=== PATIENT | female | born 1950 | race Caucasian/White ===

== ENCOUNTER 2021-03-21 11:20 | Outpatient (CLI) | payer MEDICARE, SELFPAY ==
--- NOTE | 2021-03-21 11:34 | ECG_ITS ---
Measurements Intervals [place] Rate: 73 P: 13 SD: 148 QRS: 69 QRSD: 72 T: 50 QT: 350 QTc: 387 Interpretive Statements SINUS RHYTHM LOW QRS VOLTAGE IN PRECORDIAL LEADS BORDERLINE ECG Electronically Signed On 03-21-2021 12:29:52 ROOM MANAGER by Haim Nice D.O.
[2021-03-21 12:36] LABS: Anion Gap 5 mmol/L (8-16); Blood Urea Nitrogen 19 mg/dL (7-17); Calcium 9.6 mg/dL (8.4-10.2); Carbon Dioxide 28 mmol/L (22-30); Chloride 101 mmol/L (98-107); Estimated Glomerular Filt Rate 55; Glucose 106 mg/dL (65-110); Potassium 5.4 mmol/L (3.4-5.0); Sodium 134 mmol/L (137-145)
[2021-03-21 12:53] LABS: Basophils Percent Auto 0.4 % (0.2-1.2); Hemoglobin 11.9 g/dL (12.0-15.0); Immature Granulocyte Absolute 0.02 K/mm3 (0.00-0.031); Immature Granulocyte Percent A 0.3 % (0-0.5); Lymphocytes Percent Auto 25.5 % (18.3-44.2); Mean Corpuscular HGB Conc 31.3 g/dl (32-36); Mean Corpuscular Hemoglobin 29.4 pg (26-34); Mean Corpuscular Volume 93.8 fl (80-100); Mean Platelet Volume 11.1 fl (7.4-10.4); Monocytes Absolute Auto 0.6 K/mm3 (0.1-0.6); Monocytes Percent Auto 8.9 % (2.6-8.5); Neutrophils Absolute Auto 4.6 K/mm3 (1.3-6.7); Neutrophils Percent Auto 64.9 % (45.5-73.1); Platelet Count Result 225 k/mm3 (150-375); Red Blood Count 4.05 M/mm3 (4.2-5.4); Red Cell Distribution Width 13.6 % (11.5-14.5); White Blood Count 7.1 K/mm3 (4.5-10.0)
== END 2021-03-21 11:21 | disposition home or self-care (01) ==
LOC: ANHSURGERY 11:29
PROVIDERS: PCP Family Medicine; Visit Provider Surgery
DX: Z01.818 Encounter for other preprocedural examination (principal); K43.2 Incisional hernia without obstruction or gangrene
CPT/HCPCS: 36415; 80048; 85025; 93005

== ENCOUNTER 2021-03-29 16:25 | Observation (INO) | payer MEDICARE, SELFPAY ==
[2021-03-16 15:33] VITALS: BMI 32.1
--- NOTE | 2021-03-16 15:51 | PC.NURSE ---
Report to the Outpatient Waiting Room, entrance under the green pavilion located off [facility], at time _1100_ on date _03/28/21_. OR Time: _1 PM__. - You and your visitor will be asked a series of questions to screen for COVID 19 for your protection. - A mask is required within the hospital. - Only one visitor is allowed at this time. Patient visitors will be guided where to wait when not with patient. Preoperative COVID Testing Requirements: No COVID Test needed if: (proof is required; if not received patient will have Rapid Test prior to entry) - Patient has received COVID Vaccine at least 14 days prior to procedure date or - Patient has positive COVID test result within last 90 days of surgery date. COVID Test needed if above criteria is not met If not COVID vaccinated a COVID test must be conducted within 72 hours of surgery and patient is asked to isolate self from time of testing until procedure. You will go to the [facility] for your COVID testing. The [facility] site is located at the corner of [address] [facility]. You will only be called if COVID results are positive and your surgeon may reschedule your elective surgery date. Patients may have clear liquids (water, carbonated beverages, clear teas, apple juice) until 3 hours prior to surgery (1000 AM) with a maximum of 20 ounces. - No food from midnight until time of surgery - Infants may have breast milk until 4 hours before surgery, formula 6 hours prior to surgery. - Children will be allowed to drink immediately following surgery. If applicable, please bring a bottle or sippy cup to assist with drinking. Juice, water, soda, and popsicles are readily available. For infants on formula, please bring formula the day of surgery. Pacifiers are allowed. Take the following medications with a SIP of water the morning of surgery: NONE Medications to discontinue per physician __ALL VITAMINS & SUPPLEMENTS - 3 DAYS PRIOR TO SURGERY PER ANESTHESIA Date to take last dose 03/24/21 Please no make-up, nail faroese, hairspray, perfume, deodorant, or body powder the day of surgery. No jewelry (including any body piercings) or valuables the day of surgery, leave them at home. Please take a shower or bath the night before, or the morning of, surgery with an antibacterial soap. Wear comfortable, loose fitting clothing. Children are encouraged to wear pajamas. - Jewelry must be removed prior to entering the operating room. Rings and piercings that are not removed may be cut off. - The hospital will not accept responsibility for valuables. - Please leave all valuables, including medications, at home the day of surgery. If you are going home after surgery, a licensed straddle bug driver must drive you home. - NO public transportation without another adult. - We recommend that an adult stay with you for 24 hours following discharge. - We also recommend that you do not drive, make important decision, drink alcoholic beverages, or take any drugs that were not prescribed by your health care provider for at least 24 hours after your discharge time. For Pediatric surgeries, we recommend two adults accompany the child home (only one inside the building at this time). Follow any additional instructions given to you from your surgeon. DOROTHEA SHOWPILY AM OF SURGERY Telephone instructions given to PT and asked if any additional questions and then verbalized understanding. Patient advised to call surgeon office or pre surgery nurse liaison [phone] if any additional questions.
[2021-03-28] VITALS (12 sets, daily range): BP systolic 126–176; BP diastolic 62–87; PULSE 69–99; RESP 11–20; TEMP 36.2–37; O2SAT 92–100
[2021-03-28] MEDS: LACTATED RINGERS 1,000 ML 30 ML IV CONT ×2 (11:30→15:00)
[2021-03-28] MEDS: KETOROLAC 15 MG/ML VIAL (*BKC) IV PUSH (11:30)
[2021-03-28] MEDS: ACETAMINOPHEN 500 MG TABLET 1000 MG PO (11:30)
--- NOTE | 2021-03-28 12:45 | P.PNAN_ITS ---
Anes - Initial Pre Proc Eval Procedure: Operation Date: 03/28/21 13:00 Proposed Procedures p Laparoscopic Incisional Hernia Repair - Emmanuel Otto MD Date/Time: 03/28/21 12:45 Surgeon: Emmanuel Otto MD Pre Op Diagnosis: incisional hernia Patient Data Age: 71 Gender: F Height: 1.55 m Weight: 77.27 kg Allergies Allergy/AdvReac Type Severity Reaction Status Date / Time Sulfa (Sulfonamide Allergy Unknown Hives Verified 03/16/21 15:28 Antibiotics) SLUOROURAZI CREAM Allergy Severe N/V, Uncoded 03/16/21 15:28 DIAHRREA, BLOOD IN STOOL AND URINE Home Medications Medication Instructions Recorded Confirmed Type aspirin 81 mg tablet,delayed 81 mg PO QAM 02/21/21 03/16/21 History release lisinopril 20 mg tablet 20 mg PO QAM 02/21/21 03/16/21 History mesalamine 1.2 gram tablet,delayed 1.2 g PO BID tablet 02/21/21 03/16/21 History release omeprazole 20 mg capsule,delayed 20 mg PO QAM 02/21/21 03/16/21 History release cinnamon bark [Cinnamon] 1,000 mg PO DAILY 03/16/21 03/16/21 History turmeric 800 mg PO QAM 03/16/21 03/16/21 History Patient hx anesthesia problems: none Family hx anesthesia problems: none Results Review: All pre-operative results and documents have been reviewed as part of the pre-operative evaluation. [facility] Past Medical History Medical History (Updated 03/05/21 @ 14:29 by Margaret Crespo) Hypertension Skin cancer Surgical History Surgical History History of colon resection [address] Dr. Vahid MARTINEZ Family History Family History Father Acute myocardial infarction Other Diabetes mellitus Family history of cardiovascular disease Family history of malignant neoplasm Hypertension Social History Social History Smoking packs per day: 2.5 Smoking cigarettes per day: 50.0 Years smoked: 19 Smoking pack-years: 47.50 Smoking status: Former smoker Tobacco type: cigarettes Smoking end date: 04/14/94 Alcohol intake: current Drinks per week: 1 Substance use: never Substance use type: does not use Living arrangements: with family Spiritual care concerns: No Anes - Eval Final PreProcedure Day of Procedure 03/28/21 12:45 Patient weight: obese Heart: regular rate and rhythm Lungs: clear to auscultation Airway: Mallampati scale class II Neurological: alert and oriented Last oral intake: >/= 8 hours ASA classification: III Emergent: no Anesthetic plan: proceed Anesthesia type and monitoring: general ETT and standard monitoring Results Review: All pre-operative results and documents have been reviewed as part of the pre-operative evaluation. Informed Consent: The patient's anesthetic plan and its attendant risks and benefits were discussed with the patient/family/POA. Questions were solicited and answers provided to the satisfaction of the patient/family/POA.
--- NOTE | 2021-03-28 12:56 | WPDHPUPDATE1 ---
History and Physical Update Update Date/Time: 03/28/21 12:56 History and Physical has been reviewed, including an updated exam of the patient. There are NO changes in the patient's condition. Risks, benefits, and alternatives have been discussed and questions answered. Patient agrees to proceed with procedure.
[2021-03-28] MEDS: ceFAZolin 2 GM/D5W 50 ML 2 GM/50 ML BAG IVPB (13:08)
[2021-03-28] MEDS: BUPIVACAINE HCL 0.5% PF 30 ML VIAL INFILTRATE (13:43)
--- NOTE | 2021-03-28 14:57 | P.OP_ITS ---
Procedure Note - Detailed Date of Procedure 03/28/21 Pre-op Diagnosis incisional hernia Post-op Diagnosis same Procedure Performed Laparoscopic repair of incisional hernia with 15 x [address] mesh Surgeon Emmanuel Otto MD Instructor Kindergarten Nita Blackmon PHOTORESIST PRINTER Anesthesia general and local (0.5% Marcaine plain) Indications Patient is a 71-year-old woman who 3 years ago underwent a transverse colon resection with an upper midline incision. This was at a hand access port. She has developed an incisional hernia here and is now taken to surgery for repair Findings Multiple hernia defects were noted in the midline above the umbilicus. 15 x 20 cm mesh covered all defects with at least 5 cm overlap in every direction. Description of Procedure The patient was taken to surgery and induced into general anesthesia. The abdomen was prepped and draped. Initial trocar was in the left upper quadrant just beneath the costal margin. This was a 5 mm applied Medical optical trocar. It was placed under direct visualization. With this trocar in place, we placed a 5 mm port in the lateral mid abdomen and a 10 11 port in the left lower quadrant. We then visualized all the hernias. There was some omentum in the upper most hernia defect. This was taken down sharply. Minimal cautery was used. We then took the falciform ligament off the anterior abdominal wall to give more room for the anterior attachment of the mesh. From there I measured the length of the repair that would be required. To include the umbilicus which was actually not herniated, about 10 cm was needed. About 3-4 cm in width was required. The 15 x [address] mesh was chosen. It was laid over the area to be repaired and the outline of the mesh was marked on the IO band. The location of the transfascial sutures was then marked at each of 4 quadrants. I then sutured to 0 [place] to the mesh at the [facility] point of each side of the mesh. The most cranial transfascial suture was marked for orientation. The mesh was rolled and inserted through the 10 11 left lower quadrant port. It was unrolled and oriented appropriately. We then used the granny suture pass and passed each of the transfascial sutures at the appropriate sites. Once this was done, the mesh pulled up nicely to cover the areas of the hernias well. I then desufflated the abdomen and tied down each of the transfascial sutures. We reinsufflated to 15 cm. I then used the Opti Fix AT articulating Tacker and secured the mesh to the anterior abdominal wall with multiple absorbable tacks. To better tacked the patient's left side, I placed a 5 mm port on the right side to approach it in this direction. Eventually the mesh was quite secure with the multiple tacks. I checked all areas of fixation and the mesh looked good. I then used an 0 Vicryl suture and the Syed cone. The 0 Vicryl was used to close the fascia at the 10 11 left lower quadrant trocar site. We then evacuated CO2 and removed the trocar sleeves. Transfascial sutures were cut. Trocar sites were closed at the skin level with 4-0 Monocryl subcuticular skin suture. The transfascial suture sites were closed with Exofin adhesive. The trocar sites were dressed with Exofin adhesive. The patient was awakened and taken to recovery in good condition. Sponge and needle counts were correct x2. Implants 15 x [address] mesh Estimated Blood Loss 5 Drains No Packing No Pathology none sent Complications No immediate complications Condition stable Disposition PACU
[2021-03-28] MEDS: fentaNYL CITRATE INJ (*CRX) 100 MCG/2 ML VIAL 25 MCG IV PUSH (15:56)
[2021-03-28] MEDS: LACTATED RINGERS 1,000 ML 80 ML IV CONT (16:55)
[2021-03-28] MEDS: MORPHINE SULFATE (*CRX) 2 MG/ML INJ IV PUSH ×2 (17:01→19:55)
[2021-03-28] MEDS: ONDANSETRON INJ 4 MG/2 ML VIAL IV PUSH (17:18)
[2021-03-28] MEDS: IBUPROFEN IV 800 MG/200 ML 800 MG/200 ML BAG 400 MG IVPB (18:01)
[2021-03-28] MEDS: HYDROcodone/acetaminophen (*CRX) 7.5-325 MG TABLET 1 TAB PO (20:20)
[2021-03-29] MEDS: HYDROcodone/acetaminophen (*CRX) 7.5-325 MG TABLET 1 TAB PO ×5 (01:22→22:54)
[2021-03-29] MEDS: IBUPROFEN IV 800 MG/200 ML 800 MG/200 ML BAG 200 MG IVPB (01:50)
[2021-03-29 04:00] VITALS: BP 148/72; PULSE 99; RESP 16; TEMP 36.8; O2SAT 94
[2021-03-29] MEDS: ONDANSETRON INJ 4 MG/2 ML VIAL IV PUSH ×2 (06:00→09:04)
[2021-03-29 07:41] LABS: Hemoglobin 10.1 g/dL (12.0-15.0); Mean Corpuscular HGB Conc 31.6 g/dl (32-36); Mean Corpuscular Hemoglobin 29.5 pg (26-34); Mean Corpuscular Volume 93.6 fl (80-100); Mean Platelet Volume 11.3 fl (7.4-10.4); Platelet Count Result 188 k/mm3 (150-375); Red Blood Count 3.42 M/mm3 (4.2-5.4); Red Cell Distribution Width 13.7 % (11.5-14.5); White Blood Count 10.6 K/mm3 (4.5-10.0)
[2021-03-29 07:44] LABS: Anion Gap 10 mmol/L (8-16); Blood Urea Nitrogen 16 mg/dL (7-17); Calcium 8.3 mg/dL (8.4-10.2); Carbon Dioxide 23 mmol/L (22-30); Chloride 101 mmol/L (98-107); Estimated CRCL calculation 41 ml/min; Estimated Glomerular Filt Rate 49; Glucose 115 mg/dL (65-110); Potassium 4.3 mmol/L (3.4-5.0); Sodium 134 mmol/L (137-145)
[2021-03-29 08:00] VITALS: BP 145/79; PULSE 74; RESP 14; TEMP 36.6; O2SAT 97
[2021-03-29] MEDS: LACTATED RINGERS 1,000 ML 80 ML IV CONT (09:02)
[2021-03-29] MEDS: ASPIRIN 81 MG ENTERIC TABLET PO (09:26)
[2021-03-29] MEDS: lisinopriL 20 MG TABLET PO (09:27)
[2021-03-29] MEDS: ENOXAPARIN 40 MG/0.4 ML SYRINGE SUB-Q (09:27)
[2021-03-29] MEDS: PANTOPRAZOLE 40 MG TABLET PO (09:27)
[2021-03-29] MEDS: PROMETHAZINE HCL 25 MG/ML AMPUL IM (10:00)
--- NOTE | 2021-03-29 10:08 | WPDANESPN ---
Anes - Prog Note Post-Op Date/Time: 03/29/21 10:08 Cardiovascular status: normal Respiratory status: normal Airway patency: baseline Mental status: baseline Post-Op hydration status: normal Vital Signs: Last Vital Signs Temp 36.8 C 03/29/21 04:00 Pulse 99 03/29/21 04:00 Resp 16 03/29/21 04:00 BP 148/72 H 03/29/21 04:00 Pulse Ox 94 03/29/21 04:00 Pain Score (VAS): 0 I/O: Intake & Output 03/28/21 03/29/21 03/29/21 23:59 07:59 15:59 Intake Total 250 1700 Output Total 200 Balance 250 1700 -200 Laboratory Tests 03/29/21 07:13 03/29/21 07:13 03/29/21 03/29/21 07:13 07:13 WBC 10.6 H RBC 3.42 L Hgb 10.1 L Hct 32.0 L MCV 93.6 MCH 29.5 MCHC 31.6 L RDW 13.7 Plt Count 188 MPV 11.3 H Sodium 134 L Potassium 4.3 Chloride 101 Carbon Dioxide 23 Anion Gap 10 BUN 16 Creatinine 1.10 H Estim Creat Clear Calc 41 Estimated GFR 49 L Glucose 115 H Calcium 8.3 L Post-procedural complaints: none Patient Feedback: Patient satisfied with anesthetic care.
[2021-03-29 14:00] VITALS: BP 124/61; PULSE 84; RESP 16; TEMP 36.7; O2SAT 96
[2021-03-29] MEDS: MESALAMINE 400 MG DELAYED RELEASE CAPSULE 1200 MG PO (16:44)
--- NOTE | 2021-03-29 20:19 | PM.PNGS ---
Progress Note: A&P Assessment and Plan (1) Incisional hernia without mention of obstruction or gangrene: Qualifiers: Obstruction and gangrene presence: without obstruction or gangrene Qualified Code(s): K43.2 - Incisional hernia without obstruction or gangrene Code(s): K43.2 - Incisional hernia without obstruction or gangrene Status: Acute Assessment and Plan: Having pain as well as nausea and vomiting. Not able to ambulate at all. Will need to continue inpatient care. Hopefully can try some full liquids later today. (2) Crohn's disease: Qualifiers: Gastrointestinal tract location: unspecified location Digestive disease complication type: unspecified complication Qualified Code(s): K50.919 - Crohn's disease, unspecified, with unspecified complications Code(s): K50.90 - Crohn's disease, unspecified, without complications Status: Chronic Subjective Subjective Date/Time Seen: 03/29/21 20:19 Post Op day: 1 Patient reports: still having pain, nausea and vomiting Review of Systems Review of Systems: All systems reviewed & are unremarkable except as noted in HPI and below Constitutional: Constitutional: Denies headache(s) Cardiovascular: Cardiovascular: Denies chest pain and Denies dyspnea Respiratory: Respiratory: Denies cough and Denies dyspnea Gastrointestinal: Gastrointestinal: Reports as per HPI, Reports abdominal pain, Reports nausea and Reports vomiting Exam Const: General: cooperative, alert, awake and uncomfortable Nutritional Appearance: overweight Orientation/consciousness: patient oriented x3 GI: Inspection: non-distended, incision (All incisions healing well) and no visible herniation GI Palp: Yes Soft to palpation, Yes Tenderness to palpation present (GI) (Appropriate tenderness diffusely in the abdomen), No Guarding due to palpation present (GI) and No Rebound tenderness present Neuro: General: patient oriented x3, no focal motor deficits and No confusion Extrem: General: no calf tenderness and no edema Psych: Affect: normal affect Insight: Good insight present (Psych) Judgement: Good judgement present (Psych) Objective Data Vital Signs Vital Signs: Vital Signs - 24 hr 03/28/21 20:45 03/28/21 23:20 03/29/21 04:00 Temperature 37.0 C 36.8 C Pulse Rate 99 92 99 Respiratory Rate 16 16 Blood Pressure 150/67 H 148/72 H Pulse Oximetry 94 94 94 03/29/21 08:00 03/29/21 14:00 Temperature 36.6 C 36.7 C Pulse Rate 74 84 Respiratory Rate 14 16 Blood Pressure 145/79 H 124/61 Pulse Oximetry 97 96 Intake/Output Intake/Output: Intake & Output 03/26/21 03/27/21 03/28/21 03/29/21 23:59 23:59 23:59 23:59 Intake Total 300 1700 Output Total 200 Balance 300 1500 Meds/Results Medications: Active Medications Generic Name Dose Route Start Last Admin Trade Name Freq PRN Reason Stop Dose Admin Acetaminophen 500 mg 03/28/21 16:34 Acetaminophen 500 Mg Tablet PO Q6H PRN Mild Pain (1-3) or Fever Hydrocodone Bitart/Acetaminophen 1 tab 03/28/21 16:34 Hydrocodone/Acetaminophen (*Crx) 5-325 Mg Tablet PO Q4H PRN Pain Rated 4-6 Hydrocodone Bitart/Acetaminophen 1 tab 03/28/21 16:34 03/29/21 18:30 Hydrocodone/Acetaminophen (*Crx) 7.5-325 Mg Tablet PO 1 tab Q4H PRN Administration Pain Rated 7-10 Aspirin 81 mg 03/29/21 09:00 03/29/21 09:26 Aspirin 81 Mg Enteric Tablet PO 81 mg QAM AURA Administration Enoxaparin Sodium 40 mg 03/29/21 09:00 03/29/21 09:27 Enoxaparin 40 Mg/0.4 Ml Syringe SUB-Q 40 mg DAILY AURA Administration Lactated Ringer's 1,000 mls @ 80 mls/hr 03/28/21 16:34 03/29/21 09:02 Lr - Lactated Ringers Iv IV CONT 80 mls/hr .[id number] AURA Administration Ibuprofen 800 mg in 200 mls @ 400 mls/hr 03/28/21 16:34 03/29/21 02:50 Caldolor 800 Mg/200 Ml IVPB Infused Q6H PRN Infusion Pain Rated 4-6 Lisinopril 20 mg 03/29/21 09:00 03/14
[2021-03-29 20:30] VITALS: PULSE 93; RESP 18; O2SAT 92
[2021-03-29 22:00] VITALS: BP 144/67; PULSE 89; RESP 16; TEMP 36.8; O2SAT 93
[2021-03-30] MEDS: LACTATED RINGERS 1,000 ML 80 ML IV CONT (00:55)
[2021-03-30] MEDS: HYDROcodone/acetaminophen (*CRX) 7.5-325 MG TABLET 1 TAB PO ×2 (03:48→09:08)
[2021-03-30 05:26] VITALS: BP 160/79; PULSE 93; RESP 18; TEMP 36.6; O2SAT 92
[2021-03-30 07:41] LABS: Anion Gap 4 mmol/L (8-16); Blood Urea Nitrogen 13 mg/dL (7-17); Calcium 8.6 mg/dL (8.4-10.2); Carbon Dioxide 27 mmol/L (22-30); Chloride 101 mmol/L (98-107); Estimated CRCL calculation 49 ml/min; Estimated Glomerular Filt Rate > 60; Glucose 103 mg/dL (65-110); Potassium 4.3 mmol/L (3.4-5.0); Sodium 132 mmol/L (137-145)
[2021-03-30 07:48] LABS: Hematocrit 32.9 % (37.0-47.0); Hemoglobin 10.3 g/dL (12.0-15.0); Mean Corpuscular HGB Conc 31.3 g/dl (32-36); Mean Corpuscular Hemoglobin 29.3 pg (26-34); Mean Corpuscular Volume 93.5 fl (80-100); Mean Platelet Volume 11.1 fl (7.4-10.4); Platelet Count Result 180 k/mm3 (150-375); Red Blood Count 3.52 M/mm3 (4.2-5.4); Red Cell Distribution Width 14.1 % (11.5-14.5)
[2021-03-30] MEDS: PANTOPRAZOLE 40 MG TABLET PO (09:03)
[2021-03-30] MEDS: lisinopriL 20 MG TABLET PO (09:03)
[2021-03-30] MEDS: ASPIRIN 81 MG ENTERIC TABLET PO (09:03)
[2021-03-30] MEDS: ENOXAPARIN 40 MG/0.4 ML SYRINGE SUB-Q (09:03)
--- NOTE | 2021-03-30 09:47 | PM.DS ---
DS: Admitting Diagnosis Discharge Date 03/30/2021 Admitting Diagnosis incisional hernia DS: Discharge Diagnosis Discharge Diagnosis (1) Incisional hernia without mention of obstruction or gangrene: Qualifiers: Obstruction and gangrene presence: without obstruction or gangrene Qualified Code(s): K43.2 - Incisional hernia without obstruction or gangrene Code(s): K43.2 - Incisional hernia without obstruction or gangrene Status: Chronic Assessment and Plan: status post laparoscopic repair with 15 x [address] underlay mesh 2020 (2) Crohn's disease: Qualifiers: Gastrointestinal tract location: unspecified location Digestive disease complication type: unspecified complication Qualified Code(s): K50.919 - Crohn's disease, unspecified, with unspecified complications Code(s): K50.90 - Crohn's disease, unspecified, without complications Status: Chronic Assessment and Plan: 2018, patient had a transverse colon near obstructing stricture and underwent resection with anastomosis. DS: Summary Hospital Course Hospital Course: patient was seen in the office in February. Both exam and CT scan showed an incisional hernia as well as an umbilical hernia. After discussion, she was prepared for surgery and taken to the operating room on 03/28/2021. She underwent laparoscopic repair with 15 x [address] mesh. She was noted at surgery to have several hernias at the area of her old incision from colon resection. For these as well as the umbilical hernia were repaired by the mesh placement. Postoperatively, the patient had quite a bit of nausea and vomiting initially. The morning after surgery she was very uncomfortable and still too nauseated to eat. This improved as the day went on. By supper time she was tolerating full liquids well. On postop day 2. , 03/30/2021 she was able to be advanced to a regular diet. She was comfortable on oral analgesics. She was able to be discharged in good condition. Her nausea had resolved. Her labs looked good. She was much improved. Status at Discharge Overall status at discharge: patient is progressing back to baseline Time Spent with Patient Time attestation: Total time spent providing and/or coordinating discharge services: Exam Const: General: comfortable and no acute distress; No confusion Orientation/consciousness: patient oriented x3 and No confusion Resp: Effort & Inspection: normal respiratory effort Auscultation: clear to auscultation bilaterally GI: Inspection: non-distended and incision ( All trocar sites healing well, no hematoma or seroma) GI Palp: Yes Soft to palpation, Yes Tenderness to palpation present (GI) ( appropriate generalized tenderness), No Guarding due to palpation present (GI) and No Rebound tenderness present Auscultation: normal bowel sounds Neuro: General: patient oriented x3, no focal motor deficits and No confusion Extrem: General: no calf tenderness and no edema Psych: Affect: normal affect Insight: Good insight present (Psych) Judgement: Good judgement present (Psych) DS: Data Data Completed and Pending Labs on day of discharge: Labs from last 24 hours 03/30/21 03/30/21 07:18 07:18 WBC 8.0 RBC 3.52 L Hgb 10.3 L Hct 32.9 L MCV 93.5 MCH 29.3 MCHC 31.3 L RDW 14.1 Plt Count 180 MPV 11.1 H Sodium 132 L Potassium 4.3 Chloride 101 Carbon Dioxide 27 Anion Gap 4 L BUN 13 Creatinine 0.90 Estim Creat Clear Calc 49 Estimated GFR > 60 Glucose 103 Calcium 8.6 Discharge Plan Discharge Attending physician on discharge: Emmanuel Otto Discharging Clinician: Emmanuel Otto Anticipated Discharge Date/Time: 03/30/21 09:54 Patient Disposition: Home, Self-Care Activity: may shower, no straining and as tolerated Diet: as tolerated and regular Wound Care Instructions: incision open to air Discharg
[2021-03-30] MEDS: MESALAMINE 400 MG DELAYED RELEASE CAPSULE 1200 MG PO (09:49)
[2021-03-30 10:46] VITALS: BP 139/64; PULSE 98; RESP 18; TEMP 36.4; O2SAT 93
== END 2021-03-30 12:42 | disposition home or self-care (01) ==
LOC: ANHSURGERY 16:40 → ANHSUROVER 16:40 → ANH3MED 03-30 08:49
PROVIDERS: Admitting Provider Surgery; PCP Family Medicine; Visit Provider Surgery
PROC: (CPT 49654; principal; 2021-03-28 13:00)
DX: K43.2 Incisional hernia without obstruction or gangrene (principal); R11.2 Nausea with vomiting, unspecified; G89.18 Other acute postprocedural pain; K50.919 Crohn's disease, unspecified, with unspecified complications; Z90.49 Acquired absence of other specified parts of digestive tract; Z98.0 Intestinal bypass and anastomosis status; I10 Essential (primary) hypertension; Z87.891 Personal history of nicotine dependence; Z85.828 Personal history of other malignant neoplasm of skin; E66.9 Obesity, unspecified; Z68.32 Body mass index [BMI] 32.0-32.9, adult
CPT/HCPCS: 49654; 36415; 80048; 85025; 85027; 93005; A9270; G0378; J0690; J1100; J1170; J1650; J1741; J1885; J2250; J2270; J2370; J2405; J2550; J2704; J2710; J3010; J7120

== ENCOUNTER 2022-01-07 01:51 | Day surgery (SDC) | payer MEDICARE, SELFPAY ==
[2021-12-21 14:54] VITALS: BMI 35.4
[2022-01-07 10:20] VITALS: BP 152/82; PULSE 92; RESP 18; TEMP 36.1; O2SAT 100; BMI 35.9
--- NOTE | 2022-01-07 10:23 | WPDANESEPPF ---
Anes - Initial Pre Proc Eval Procedure: Operation Date: 01/07/22 11:30 Proposed Procedures p Colonoscopy - Darryl Caicedo MD Date/Time: 01/07/22 10:23 Surgeon: Darryl Caicedo MD Pre Op Diagnosis: crohn's disease Patient Data Age: 71 Gender: F Height: 1.5 m Weight: 80.8 kg Last Vital Signs Temp 36.1 C L 01/07/22 10:20 Pulse 92 01/07/22 10:20 Resp 18 01/07/22 10:20 BP 152/82 H 01/07/22 10:20 Pulse Ox 100 01/07/22 10:20 O2 Del Method Room Air 01/07/22 10:20 Allergies Allergy/AdvReac Type Severity Reaction Status Date / Time Sulfa (Sulfonamide Allergy Unknown Hives Verified 12/21/21 15:04 Antibiotics) SLUOROURAZI CREAM Allergy Severe N/V, Uncoded 12/21/21 15:04 DIAHRREA, BLOOD IN STOOL AND URINE Home Medications Medication Instructions Recorded Confirmed Type aspirin 81 mg tablet,delayed 81 mg PO QAM 02/21/21 12/21/21 History release lisinopril 20 mg tablet 20 mg PO QAM 02/21/21 12/21/21 History mesalamine 1.2 gram tablet,delayed 1.2 g PO BID 02/21/21 12/21/21 History release omeprazole 20 mg capsule,delayed 20 mg PO QAM 02/21/21 12/21/21 History release cinnamon bark 500 mg capsule 1,000 mg PO DAILY 03/16/21 12/21/21 History (Cinnamon) turmeric 400 mg capsule 800 mg PO QAM 03/16/21 12/21/21 History polyethylene glycol 3350 17 17 g PO DAILY #119 grams 03/30/21 12/21/21 Rx gram/dose oral powder (Miralax) peg 3350-electrolytes 236 240 ml PO Q10M #4,000 mL 12/12/21 12/21/21 Rx gram-22.74 gram-6.74 gram-5.86 gram solution (Golytely) Patient hx anesthesia problems: none Family hx anesthesia problems: none Results Review: All pre-operative results and documents have been reviewed as part of the pre-operative evaluation. [facility] Past Medical History Medical History (Updated 01/07/22 @ 10:23 by Robbi Silva MD) GERD (gastroesophageal reflux disease) Hypertension Skin cancer Surgical History Surgical History History of colon resection 2017 Dr. Vahid MARTINEZ History of incisional hernia repair 03/28/21 Laparoscopic repair of incisional hernia with 15 x [address] mesh Family History Family History Father Acute myocardial infarction Other Diabetes mellitus Family history of cardiovascular disease Family history of malignant neoplasm Hypertension Social History Social History Smoking packs per day: 2.5 Smoking cigarettes per day: 50.0 Years smoked: 25 Smoking pack-years: 62.50 Smoking status: Former smoker Tobacco type: cigarettes Smoking end date: 04/14/94 Alcohol intake: current Drinks per week: 3 Substance use: never Substance use type: does not use Living arrangements: with family Spiritual care concerns: No Anes - Eval Final PreProcedure Day of Procedure 01/07/22 10:23 Patient weight: obese Heart: regular rate and rhythm Lungs: clear to auscultation Airway: Mallampati scale class II Neurological: alert and oriented Last oral intake: >/= 8 hours ASA classification: III Emergent: no Anesthetic plan: proceed Anesthesia type and monitoring: general GIVS and standard monitoring Results Review: All pre-operative results and documents have been reviewed as part of the pre-operative evaluation. Informed Consent: The patient's anesthetic plan and its attendant risks and benefits were discussed with the patient/family/POA. Questions were solicited and answers provided to the satisfaction of the patient/family/POA.
[2022-01-07] MEDS: LACTATED RINGERS 1,000 ML 150 ML IV CONT (10:32)
--- NOTE | 2022-01-07 10:46 | PM.HPGS ---
History of Present Illness History of Present Illness Consent: Risks, benefits, and alternatives have been discussed and questions answered. Patient agrees to proceed with procedure. Chief complaint: crohn's disease Narrative: Yareli Lang is a 71 year old female Presents for screening colonoscopy. Patient has a history of Crohn's disease. A transverse colon stricture was identified removed resected in 2018. Most recent colonoscopy 2019 revealed colitis in remission with no recurrent stricture ring and no active inflammation. Patient has been maintained on Lialda 2.4g p.o. daily. She presents today for surveillance screening colonoscopy. Patient does notice anal seepage occasionally. Occasionally wears a pad. No active bleeding no fevers. Family history noncontributory. Review of Systems Review of Systems: Review of systems noncontributory. [facility] Past Medical History Medical History (Updated 01/07/22 @ 10:23 by Robbi Silva MD) GERD (gastroesophageal reflux disease) Hypertension Skin cancer Surgical History Surgical History History of colon resection 2017 Dr. Vahid MARTINEZ History of incisional hernia repair 03/28/21 Laparoscopic repair of incisional hernia with 15 x [address] mesh Family History Family History Father Acute myocardial infarction Other Diabetes mellitus Family history of cardiovascular disease Family history of malignant neoplasm Hypertension Social History Social History Smoking packs per day: 2.5 Smoking cigarettes per day: 50.0 Years smoked: 25 Smoking pack-years: 62.50 Smoking status: Former smoker Tobacco type: cigarettes Smoking end date: 04/14/94 Alcohol intake: current Drinks per week: 3 Substance use: never Substance use type: does not use Living arrangements: with family Spiritual care concerns: No Meds Home Medications and Allergies Home Medications Medication Instructions Recorded Confirmed Type aspirin 81 mg tablet,delayed 81 mg PO QAM 02/21/21 12/21/21 History release lisinopril 20 mg tablet 20 mg PO QAM 02/21/21 12/21/21 History mesalamine 1.2 gram tablet,delayed 1.2 g PO BID 02/21/21 12/21/21 History release omeprazole 20 mg capsule,delayed 20 mg PO QAM 02/21/21 12/21/21 History release cinnamon bark 500 mg capsule 1,000 mg PO DAILY 03/16/21 12/21/21 History (Cinnamon) turmeric 400 mg capsule 800 mg PO QAM 03/16/21 12/21/21 History polyethylene glycol 3350 17 17 g PO DAILY #119 grams 03/30/21 12/21/21 Rx gram/dose oral powder (Miralax) peg 3350-electrolytes 236 240 ml PO Q10M #4,000 mL 12/12/21 12/21/21 Rx gram-22.74 gram-6.74 gram-5.86 gram solution (Golytely) Allergies Allergy/AdvReac Type Severity Reaction Status Date / Time Sulfa (Sulfonamide Allergy Unknown Hives Verified 12/21/21 15:04 Antibiotics) SLUOROURAZI CREAM Allergy Severe N/V, Uncoded 12/21/21 15:04 DIAHRREA, BLOOD IN STOOL AND URINE Vital Signs Vital Signs - 24 hr 01/07/22 10:20 Temperature 97 F L Pulse Rate 92 Respiratory Rate 18 Blood Pressure 152/82 H Pulse Oximetry 100 Oxygen Delivery Room Air Exam Narrative: Physical exam reveals patient to be alert. Vital signs stable. HEENT exam is unremarkable. Patient is anicteric. Lungs are clear to auscultation and percussion. Heart is without murmur or extra sounds. Abdominal exam bowel sounds are present soft nontender with no organomegaly. Digital external rectal exam is normal. Assessment and Plan Assessment and plan (1) Crohn's disease: Qualifiers: Gastrointestinal tract location: unspecified location Digestive disease complication type: unspecified complication Qualified Code(s): K50.919 - Crohn's disease, unspecified
[2022-01-07 11:12] VITALS: BP 146/53; PULSE 72; RESP 16; O2SAT 100
[2022-01-07 11:22] VITALS: BP 123/56; PULSE 72; RESP 15; O2SAT 99
[2022-01-07 11:32] VITALS: BP 133/63; PULSE 74; RESP 16; O2SAT 99
== END 2022-01-07 11:58 | disposition home or self-care (01) ==
PROVIDERS: PCP Family Medicine; Visit Provider Internal Medicine Gastroenterology
PROC: 0DJD8ZZ Inspection of Lower Intestinal Tract, Via Natural or Artificial Opening Endoscopic (ICD-10-PCS; CPT 45378; principal; 2022-01-07 11:30)
DX: K50.90 Crohn's disease, unspecified, without complications (principal); R15.9 Full incontinence of feces; K64.8 Other hemorrhoids; K21.9 Gastro-esophageal reflux disease without esophagitis; I10 Essential (primary) hypertension; Z85.828 Personal history of other malignant neoplasm of skin; Z87.891 Personal history of nicotine dependence; Z79.82 Long term (current) use of aspirin; E66.9 Obesity, unspecified; Z68.36 Body mass index [BMI] 36.0-36.9, adult
CPT/HCPCS: 45380; 88305; J2704; J7120

== ENCOUNTER 2025-01-19 03:07 | Day surgery (SDC) | payer MEDICARE, SELFPAY ==
[2025-01-11 12:53] VITALS: BMI 36.3
--- OUTSIDE RECORDS SUMMARY | 2025-01-19 03:10 | XMS_ITS | Clinical Summary ---
Author Organization [facility] Address [address] [place] [address] Care Team Providers Care Energy Economist Name Role Phone Don Chaney MD Primary Care Provider [phone] Allergies Active Allergy Reactions Criticality Noted Date Comments Elemental Sulfur Rash Medium 08/31/2021 Fluorouracil GI Upset 11/17/2015 Sulfa Antibiotics Rash Medium 08/31/2021 Medications Calcium-Vitamin D (CALTRATE 600 PLUS-VIT D OR) Take 1,200 mg by mouth. Active Multiple Vitamins-Minerals (QC MULTI-JESSICA 50 & OVER) Tab Active nitroglycerin (NITROSTAT) 0.[address] 1 tablet (0.4 mg total) under the tongue every 5 (five) minutes as needed. Maximum of 3 doses. 30 tablet 3 025 2025 Active FARXIGA 10 MG tabletIndications:C lass 2 severe obesity due to excess calories with serious comorbidity and body mass index (BMI) of 36.0 to 36.9 in adult,Prediabetes,P rimary hypertension,Stage 3a chronic kidney disease (CMS/HCC) Take 1 tablet (10 mg total) by mouth daily. 90 tablet 1 025 Active lisinopril (PRINIVIL) 5 MG tabletIndications:P rimary hypertension Take 1 tablet (5 mg total) by mouth daily. 90 tablet 1 025 Active atorvastatin (LIPITOR) 40 MG tabletIndications:M ixed hyperlipidemia Take 1 tablet (40 mg total) by mouth nightly at bedtime. 90 tablet 1 025 Active aspirin EC (ECOTRIN) 81 MG tabletIndications:P rediabetes Take 1 tablet (81 mg total) by mouth daily. 90 tablet 1 Active mesalamine EC (LIALDA) 1.2 g Tab EC tabletIndications:H istory of Crohn's disease,Crohn's disease without complication, unspecified gastrointestinal tract location (CMS/HCC [facility]/HCC) TAKE 2 TABLETS BY MOUTH EVERY DAY 180 tablet 1 Active omeprazole (PRILOSEC) 20 MG capsuleIndications: Gastroesophageal reflux disease without esophagitis Take 1 capsule (20 mg total) by mouth daily. Does not go through insurance for this 90 capsule 1 Active aspirin EC (ECOTRIN) 81 MG tablet Take 1 tablet (81 mg total) by mouth daily. 90 tablet 3 025 2024 Discontinued(R eorder) FARXIGA 10 MG tabletIndications:P rediabetes,Benign essential HTN,Stage 3a chronic kidney disease ([facility]) Take 1 tablet (10 mg total) by mouth daily. 90 tablet 1 025 2024 Discontinued(R eorder) atorvastatin (LIPITOR) 40 MG tabletIndications:M ixed hyperlipidemia Take 1 tablet (40 mg total) by mouth nightly at bedtime. 90 tablet 1 025 2024 Discontinued(R eorder) omeprazole (PRILOSEC) 20 MG capsuleIndications: Gastroesophageal reflux disease without esophagitis Take 1 capsule (20 mg total) by mouth daily. Does not go through insurance for this 30 capsule 025 2024 Discontinued(R eorder) mesalamine EC (LIALDA) 1.2 g Tab EC tabletIndications:H istory of Crohn's disease TAKE 2 TABLETS BY MOUTH EVERY DAY 180 tablet 1 025 2024 Discontinued(R eorder) lisinopril (PRINIVIL) 5 MG tabletIndications:B enign essential HTN Take 1 tablet (5 mg total) by mouth daily. 90 tablet 025 2024 Discontinued(R eorder) omeprazole (PRILOSEC) 20 MG capsuleIndications: Gastroesophageal reflux disease without esophagitis Take 1 capsule (20 mg total) by mouth daily. Does not go through insurance for this 90 capsule 1 025 2024 Discontinued Active Problems Problem Noted Date Diagnosed Date History of Crohn's disease 08/06/2023 Stage 3a chronic kidney disease 12/31/2022 Prediabetes 12/31/2022 Mixed hyperlipidemia 12/31/2022 Class 2 severe obesity due t o excess calories with serious comorbidity and body mass index (BMI) of 36.0 to 36.9 in adult 06/19/2022 Vitamin D deficiency 06/19/2022 Primary hypertension 06/19/2022 Gastroesophageal reflux disease without esophagi tis 06/19/2022 Resolved Problems Problem Noted Date Diagnosed Date Resolved Date Eye pain, right 11/17/2015 06/19/2022 Overview (06/19/2022): Date Onset: 11/17/2015 Encounters Date Type Department Care Team Description 01/17/2025 9:20 AM CDT Office Visit [place] [address] [place] [address] Don Chaney MD Follow Up (Pt is here for a 6 mo f/u, Pt states she is doing well) 01/17/2025 Travel from Last 3 Months Immunizations Immunization Administration Dates Next Due Influenza (Generic) 04/14/2017 PFIZER COVID-19 (12+) MRNA, LNP-S, PF, GRIS-SUCROSE, 30 MCG/0.3 ML (COMIRNATY) 01/17/2025,02/05/2024,08/06/2023 PFIZER COVID-19 BIVALENT (12 +) mRNA, LNP-S, PF, 30 MCG/0.3 ML DOSE 06/19/2022 Family History Medical History Relation Comments Diabetes Brother 1 COPD Brother 2 Cancer Brother 3 brain Heart Attack Father Cancer Sister Breast Cancer Neg Hx Relation Status Comments Brother 1 Brother 2 Brother 3 Father Sister Social History Tobacco Use Types Packs/Day Years Used Date Smoking Tobacco: Former Cigarettes Smokeless Tobacco: Never Tobacco Cessation:Counseling Given: No Comments:Quit October 1994 Alcohol Use Standard Drinks/Week Comments Yes 0 (1 standard drink = 0.6 oz pur e alcohol) occasional PHQ-2 Answer Date Recorded Patient Health Questionnaire-2 Score 0 08/05/2024 Comments No Sex and Gender Information Value Date Recorded Sex Assigned at Female 05/06/2024 2:38 PM ENOLOGIST Legal Sex Female 8:09 AM CDT Gender Identity Female 08/05/2024 1:04 PM CDT Sexual Orientation Not on file Last Filed Vital Signs Vital Sign Reading Time Taken Comments Blood Pressure 126/62 01/17/2025 9:30 AM CDT Pulse 87 01/17/2025 9:30 AM CDT Temperature 36.4 C (97.6 F) 01/17/2025 9:30 AM CDT Respiratory Rate 16 01/17/2025 9:30 AM CDT Oxygen Saturation 99% 01/17/2025 9:30 AM CDT Inhaled Oxygen Concentration - - Weight 82.6 kg (182 lb) 01/17/2025 9:30 AM CDT Height 150.5 cm (4' 11.25) 01/17/2025 9:30 AM C DT Body Mass Index 36.45 01/17/2025 9:30 AM CDT Plan of Treatment Upcoming Encounters Date Type Department Care Team (Late st Contact Info) Description 08/01/2025 10:00 AM CDT Office Visit [facility] [address] [place] [id number] Don Chaney MD [address] [place] [address] Health Maintenance Due Date Last Done Comments Hepatitis C 1970 DTaP, Tdap and Td Vaccines (1 - Tdap) 1971 Pneumococcal Vaccine: 50+ Years (1 of 1 - PCV) 2002 Zoster Vaccines (1 of 2) 2002 Annual Medicare Wellness Visit 2017 Dexa Scan (General) 2017 Influenza Adult (#1) 2025 04/14/2017 Mammogram Screening 08/18/2026 08/18/2024, 08/15/2023, 07/04/2022 RSV Immunization or 60+ Years (1 - 1-dose 75+ series) 2027 Colorectal Cancer Screening Colonoscopy (10 Years) 01/08/2032 01/07/2022, 12/02/2017 PHQ-2 (Physician [place]) Completed 08/05/2024 COVID-19 Vaccine Completed 01/17/2025, , 08/06/2023, Additional history exists Meningococcal B Vaccine Aged Out No l onger eligible based on patient's age to complete this topic Meningococcal Vaccine Aged Out No max jovi eligible based on patient's age to complete this topic RSV Immunizations Under 20 Months Aged Out No longer eligible based on patient's age to complete this topic Procedures Procedure Name Priority Date/Time Associated Diagnosis Comments MG SCREENING W PHILLIP SULEIMAN DIGI Routine 08/18/2024 10:20 AM CDT Encounter for screening mammogram for malignant neoplasm of breast COLONOSCOPY GENERIC (SCAN ORDER) 01/07/2022 from Last 3 Months or Most Recently Relevant to Health Maintenance Results * MG SCREENING W PHILLIP SULEIMAN DIGI (08/18/2024 10:20 AM CDT) Anatomical Region Laterality Modality Breast Bilateral Mammography 08/19/2024 11:2 4 AM CDT Impressions 08/19/2024 11:35 AM CDT ===== IMPRESSION: ===== 1. Stable mammographic appearance with no new findings to suggest malignancy in either breast. Assessment: ACR BI-RADS 2 - BENIGN FINDING(S) Recommendation: 1:Routine Screening Bilateral Comments: Ordered By: DON CHANEY Interpreted By: Laura Tucker, 08/19/2024 11:24 AM Narrative 08/19/2024 11:35 AM CDT [address] [place] [address] EXAMINATION: Digital bilateral screening mammogram with 3-D tomosynthesis EXAM DATE/TIME: 08/18/2024 10:01 AM REASON FOR EXAM: breast cancer screening COMPARISON: 07/04/2022. 08/15/2023 Technique: Digital screening mammography of both breasts was performed in addition to 3-D Tomosynthesis technique. This study was read with the assistance of a computer-aided detection system. Tissue density: There are scattered areas of fibroglandular density. Findings: There is no new focal asymmetry, dominant mass lesion, area of skin thickening, or cluster of suspicious appearing calcifications in either breast to suggest malignancy. Don Chaney MD MAMMO Final Result * COLONOSCOPY GENERIC (SCAN ORDER) (01/07/2022) 01/07/2022 [facility] Scanned SCANNING Final Resu lt from Last 3 Months or Most Recently Relevant to Health Maintenance Insurance [employer] MEDICARE Care Teams Energy Economist Relationship Specialty Start Date End Date Don Chaney MD [address] [place] [address] [place] [address] PCP - General FAMILY PRACTICE 06/19/22
[2025-01-19 08:42] VITALS: BP 131/62; PULSE 93; RESP 18; TEMP 36.6; O2SAT 100; BMI 35.8
--- NOTE | 2025-01-19 08:51 | WPDANESEPPF ---
Anes - Initial Pre Proc Eval Procedure: Operation Date: 01/19/25 10:00 Proposed Procedures p Diagnostic Colonoscopy - Ganga Schmitt MD Date/Time: 01/19/25 08:51 Surgeon: Ganga Schmitt MD Pre Op Diagnosis: Crohn's disease, unspecified, without complication Patient Data Age: 74 Gender: F Height: 1.5 m Weight: 80.5 kg Last Vital Signs Temp 36.6 C 01/19/25 08:42 Pulse 93 01/19/25 08:42 Resp 18 01/19/25 08:42 BP 131/62 01/19/25 08:42 Pulse Ox 100 01/19/25 08:42 O2 Del Method Room Air 01/19/25 08:42 Allergies Allergy/AdvReac Type Severity Reaction Status Date / Time Sulfa (Sulfonamide Allergy Unknown Hives Verified 01/19/25 08:41 Antibiotics) SLUOROURAZI CREAM Allergy Severe N/V, Uncoded 12/21/21 15:04 DIAHRREA, BLOOD IN STOOL AND URINE Home Medications ?Medication ?Instructions ?Recorded ?Confirmed ?Type aspirin 81 mg tablet,delayed 81 mg PO QAM 02/21/21 01/19/25 History release lisinopril 20 mg tablet 20 mg PO QAM 02/21/21 01/19/25 History mesalamine 1.2 gram tablet,delayed 1.2 g PO BID 02/21/21 01/19/25 History release omeprazole 20 mg capsule,delayed 20 mg PO QAM 02/21/21 01/19/25 History release polyethylene glycol 3350 17 17 g PO DAILY #119 grams 03/30/21 01/19/25 Rx gram/dose oral powder (Miralax) atorvastatin 40 mg tablet 40 mg PO DAILY 01/11/25 01/19/25 History calcium carbonate (Calcium 600) 300 mg PO DAILY 01/11/25 01/19/25 History dapagliflozin propanediol 10 mg 10 mg PO DAILY 01/11/25 01/19/25 History tablet (Farxiga) multivitamin (Daily Multi-Vitamin 1 tablet PO DAILY 01/11/25 01/19/25 History tablet) nitroglycerin 0.4 mg sublingual 0.4 mg sublingual DAILY 01/11/25 01/19/25 History tablet Patient hx anesthesia problems: none Family hx anesthesia problems: none Results Review: All pre-operative results and documents have been reviewed as part of the pre-operative evaluation. [facility] Past Medical History Medical History GERD (gastroesophageal reflux disease) Hypertension Skin cancer Surgical History Surgical History History of incisional hernia repair 03/28/21 Laparoscopic repair of incisional hernia with 15 x [address] mesh History of colon resection 2017 Dr. Redding OA Family History Family History Father Acute myocardial infarction Other Diabetes mellitus Family history of cardiovascular disease Family history of malignant neoplasm Hypertension Social History Social History Smoking packs per day: 2 Smoking cigarettes per day: 40.0 Years smoked: 20 Smoking pack-years: 40.00 Smoking status: Former smoker Tobacco type: cigarettes Smoking end date: 09/12/94 Alcohol intake: current Drinks per week: 2 Substance use: never Substance use type: does not use Living arrangements: with family Spiritual care concerns: No Anes - Eval Final PreProcedure Day of Procedure 01/19/25 08:51 Patient weight: obese Heart: regular rate and rhythm Lungs: clear to auscultation Airway: Mallampati scale class III Neurological: alert and oriented Last oral intake: >/= 8 hours ASA classification: III Emergent: no Anesthetic plan: proceed Anesthesia type and monitoring: general and standard monitoring Results Review: All pre-operative results and documents have been reviewed as part of the pre-operative evaluation. Informed Consent: The patient's anesthetic plan and its attendant risks and benefits were discussed with the patient/family/POA. Questions were solicited and answers provided to the satisfaction of the patient/family/POA.
[2025-01-19] MEDS: LACTATED RINGERS 1,000 ML 150 ML IV CONT (08:54)
--- NOTE | 2025-01-19 09:43 | PM.IMHP ---
H&P: HPI History of Present Illness Date/Time: 01/19/25 09:43 Chief Complaint: History of Crohn's disease Narrative: the patient had a stricture in the transverse colon in 2018, requiring surgical resection. The surgical specimen was compatible with Crohn's disease. The patient has been doing well after that, having a normal colonoscopy in 2021. She is here today for her follow-up colonoscopy. Review of Systems Review of Systems: All systems reviewed & are unremarkable except as noted in HPI and below PMFSH Past Medical History Medical History GERD (gastroesophageal reflux disease) Hypertension Skin cancer Surgical History Surgical History History of incisional hernia repair 03/28/21 Laparoscopic repair of incisional hernia with 15 x [address] mesh History of colon resection 2017 Dr. Redding OA Family History Family History Father Acute myocardial infarction Other Diabetes mellitus Family history of cardiovascular disease Family history of malignant neoplasm Hypertension Social History Social History Smoking packs per day: 2 Smoking cigarettes per day: 40.0 Years smoked: 20 Smoking pack-years: 40.00 Smoking status: Former smoker Tobacco type: cigarettes Smoking end date: 09/12/94 Alcohol intake: current Drinks per week: 2 Substance use: never Substance use type: does not use Living arrangements: with family Spiritual care concerns: No Meds Home Medications and Allergies Home Medications ?Medication ?Instructions ?Recorded ?Confirmed ?Type aspirin 81 mg tablet,delayed 81 mg PO QAM 02/21/21 01/19/25 History release lisinopril 20 mg tablet 20 mg PO QAM 02/21/21 01/19/25 History mesalamine 1.2 gram tablet,delayed 1.2 g PO BID 02/21/21 01/19/25 History release omeprazole 20 mg capsule,delayed 20 mg PO QAM 02/21/21 01/19/25 History release polyethylene glycol 3350 17 17 g PO DAILY #119 grams 03/30/21 01/19/25 Rx gram/dose oral powder (Miralax) atorvastatin 40 mg tablet 40 mg PO DAILY 01/11/25 01/19/25 History calcium carbonate (Calcium 600) 300 mg PO DAILY 01/11/25 01/19/25 History dapagliflozin propanediol 10 mg 10 mg PO DAILY 01/11/25 01/19/25 History tablet (Farxiga) multivitamin (Daily Multi-Vitamin 1 tablet PO DAILY 01/11/25 01/19/25 History tablet) nitroglycerin 0.4 mg sublingual 0.4 mg sublingual DAILY 01/11/25 01/19/25 History tablet Allergies Allergy/AdvReac Type Severity Reaction Status Date / Time Sulfa (Sulfonamide Allergy Unknown Hives Verified 01/19/25 08:41 Antibiotics) SLUOROURAZI CREAM Allergy Severe N/V, Uncoded 12/21/21 15:04 DIAHRREA, BLOOD IN STOOL AND URINE Vital Signs Vital Signs - 24 hr 01/19/25 08:42 Temperature 97.8 F Pulse Rate 93 Respiratory Rate 18 Blood Pressure 131/62 Pulse Oximetry 100 Oxygen Delivery Room Air Exam Const: General: cooperative and healthy appearing Resp: Effort & Inspection: normal respiratory effort and able to speak in complete sentences Auscultation: clear to auscultation bilaterally Cardio: Rate: regular rate Rhythm: regular rhythm GI: Inspection: normal to inspection GI Palp: No No hepatosplenomegaly present Auscultation: normal bowel sounds Rectal Exam: deferred Skin: General skin exam: normal color Psych: Appearance: grossly normal Mental Status: mental status grossly normal Assessment and Plan Assessment and plan (1) Crohn's disease: Qualifiers: Gastrointestinal tract location: unspecified location Digestive disease complication type: unspecified complication Qualified Code(s): K50.919 - Crohn's disease, unspecified, with unspecified complications Code(s): K50.90 - Crohn's disease, unspecified, without complications Status: Chronic Assessment and Plan: The patient is deemed a good candidate for the procedure. Consent signed. Will proceed.
--- NOTE | 2025-01-19 09:58 | S_PTH ---
PATIENT: Yareli Lang LOC: [facility] U#:[id number] AGE/SX: 74/F ROOM: RE01/19/[address]: Ganga Schmitt MD : 1950 BED: DIS: 01/19/2025 SPEC #: [id number] RECD: 01/19/25 10:44 STATUS: OLGA REQ #: [id number] LIZ: 01/19/25 09:[address]: Ganga Schmitt DEPT: [facility] Surgical RECD BY: Sylvia Welch ENTERED: 01/19/25 10:45 SP TYPE: Surgical OTHR DR: Don SmithMD Tissues: A - Colon Biopsy B - Colon Biopsy Procedures: Hematoxylin and Eosin Stain Gross and Microscopic Level 4
[2025-01-19] MEDS: SIMETHICONE ORAL SUSPENSION 20 MG/0.3 ML 30 ML BOTTLE 0.6 ML IRRIGATION (10:04)
[2025-01-19 10:05] VITALS: BP 131/55; PULSE 86; RESP 17; O2SAT 100
[2025-01-19 10:15] VITALS: BP 122/53; PULSE 76; RESP 19; O2SAT 100
[2025-01-19 10:25] VITALS: BP 121/43; PULSE 75; RESP 22; O2SAT 100
== END 2025-01-19 10:37 | disposition home or self-care (01) ==
PROVIDERS: PCP Family Medicine; Referring Provider Internal Medicine Gastroenterology; Visit Provider Internal Medicine Gastroenterology
PROC: 0DJD8ZZ Inspection of Lower Intestinal Tract, Via Natural or Artificial Opening Endoscopic (ICD-10-PCS; CPT 45378; principal; 2025-01-19 10:00)
DX: Z09 Encounter for follow-up examination after completed treatment for conditions other than malignant neoplasm (principal); K51.811 Other ulcerative colitis with rectal bleeding; K64.8 Other hemorrhoids; K21.9 Gastro-esophageal reflux disease without esophagitis; I10 Essential (primary) hypertension; E66.9 Obesity, unspecified; Z68.35 Body mass index [BMI] 35.0-35.9, adult; Z79.82 Long term (current) use of aspirin; Z79.84 Long term (current) use of oral hypoglycemic drugs; Z98.890 Other specified postprocedural states; Z90.49 Acquired absence of other specified parts of digestive tract; Z85.828 Personal history of other malignant neoplasm of skin; Z87.891 Personal history of nicotine dependence; Z87.19 Personal history of other diseases of the digestive system; Z80.9 Family history of malignant neoplasm, unspecified; Z82.49 Family history of ischemic heart disease and other diseases of the circulatory system
CPT/HCPCS: 45380; 88305; J2704; J7120